=== PATIENT | female | born 1945 | race Caucasian/White ===

== ENCOUNTER 2016-11-05 16:38 | Observation (INO) | payer MEDICARE ==
[~2016-11-05] VITALS: Ht 172.7 cm; Wt 65.8 kg
[2016-11-05] MEDS ORDERED: PLEASE ENTER HEIGHT AND WEIGHT MC SCH (18:00)
[2016-11-05] MEDS ORDERED: SODIUM CHLORIDE FLUSH 10ML SYR IVF ONE (18:00)
[2016-11-05] MEDS ORDERED: ACETAMINOPHEN 325 MG TABLET PO ONE (18:00)
[2016-11-05] MEDS ORDERED: SODIUM CHLORIDE 0.9% 1,000ML IVBOLUS ONE (18:00)
[2016-11-05] MEDS ORDERED: ACETAMINOPHEN 325 MG TABLET ONE (18:04)
[2016-11-05 18:09] LABS: ASPARTATE AMINO TRANSFERASE 26 U/L (15-37); BLOOD UREA NITROGEN 15 mg/dL (7-18)
[2016-11-05 18:15] LABS: IS PT STATUS REG ER OR PRE ER? YES
[2016-11-05] MEDS ORDERED: VENL50TA2 PO (18:49)
[2016-11-05] MEDS ORDERED: ESTR0.5T PO (18:49)
[2016-11-05] MEDS ORDERED: CLON-365 PO (18:49)
[2016-11-05] MEDS: PLEASE ENTER ALLERGIES MC SCH ×4 (18:50→20:39)
[2016-11-05] MEDS ORDERED: POTASSIUM CHLORIDE 10 MEQ in SODIUM CHLORIDE 0.9% 1,000 ML IV SCH (19:22)
[2016-11-05] MEDS ORDERED: ACETAMINOPHEN 325 MG TABLET PO PRN (19:30)
[2016-11-05] MEDS ORDERED: POLYETHYLENE GLYCOL 17 GM PACKET PO PRN (19:30)
[2016-11-05] MEDS: ENOXAPARIN 40 MG/0.4 ML SQ SCH ×2 (19:30→21:46)
[2016-11-05] MEDS ORDERED: DOCUSATE 100 MG CAPSULE PO PRN (19:30)
[2016-11-05] MEDS ORDERED: BISACODYL 10 MG SUPP PR PRN (19:30)
[2016-11-05] MEDS ORDERED: ONDANSETRON 2MG/ML, 2ML IVPush PRN (19:30)
[2016-11-05] MEDS ORDERED: ENOXAPARIN 40 MG/0.4 ML ONE (19:56)
[2016-11-05 21:25] VITALS: BP 130/76
[2016-11-05] MEDS: SODIUM CHLORIDE 0.9% 1,000 ML IV SCH (23:24)
[2016-11-06] VITALS (7 sets, daily range): BP systolic 85–116; BP diastolic 50–78
[2016-11-06] MEDS ORDERED: OMNIPAQUE 350 MG/ML, 100ML BOTTLE ONE (01:16)
[2016-11-06] MEDS: SODIUM CHLORIDE 0.9% 1,000 ML IV SCH (08:35)
[2016-11-06] MEDS ORDERED: ESTRADIOL 0.5 MG TABLET PO SCH (09:00)
[2016-11-06] MEDS ORDERED: VENLAFAXINE 50MG TABLET PO SCH (09:00)
[2016-11-06] MEDS ORDERED: SODIUM CHLORIDE 0.9%, 500ML IVBOLUS ONE (10:30)
[2016-11-06] MEDS ORDERED: SODIUM CHLORIDE 0.9% 1,000 ML IV SCH (19:22)
== END 2016-11-06 16:52 | disposition home or self-care (01) ==
LOC: ED 18:58 → SUATTDRO 19:21 → DCLOUNGE 19:22 → EDIP 19:33 → UNDOADMIN 19:33 → 5SO 21:06 → EDIP 21:06 → DCLOUNGE 11-06 16:32 → 5SO 11-06 16:32 → UNDODISIN 11-06 16:52
DX: R55 Syncope and collapse (principal); S51.012A Laceration without foreign body of left elbow, initial encounter; F45.8 Other somatoform disorders; R63.4 Abnormal weight loss; I95.1 Orthostatic hypotension; F43.21 Adjustment disorder with depressed mood; R79.89 Other specified abnormal findings of blood chemistry; W18.30XA Fall on same level, unspecified, initial encounter; Y93.89 Activity, other specified; Y92.89 Other specified places as the place of occurrence of the external cause; Y99.8 Other external cause status; Z78.0 Asymptomatic menopausal state
CPT/HCPCS: 36415; 70450; 71010; 71275; 72125; 80053; 81003; 83880; 84443; 84484; 85025; 85379; 85610; 85730; 93005; 93306; 93880; 96360; 96361; 96372; 97162; 97165; 99285; G0378; J1650; J7030; J7040; Q9967

== ENCOUNTER 2016-11-07 18:10 | Emergency (ER) | payer MEDICARE ==
[~2016-11-07] VITALS: Ht 175.3 cm; Wt 61.6 kg
[~2016-11-07 18:10] MED LIST: CLON-365 PO; ESTR0.5T PO; VENL50TA2 PO
[2016-11-07] MEDS ORDERED: SODIUM CHLORIDE 0.9% 1,000 ML IV ONE (18:37)
[2016-11-07] MEDS ORDERED: ONDANSETRON 2MG/ML, 2ML ONE (18:41)
[2016-11-07] MEDS ORDERED: LORazepam 2 MG/ML, 1ML ONE (18:42)
[2016-11-07] MEDS ORDERED: SODIUM CHLORIDE FLUSH 10ML SYR IVF ONE (19:00)
[2016-11-07] MEDS ORDERED: LORazepam 2 MG/ML, 1ML IVPush ONE (19:00)
[2016-11-07] MEDS ORDERED: ONDANSETRON 2MG/ML, 2ML IVPush ONE (19:00)
[2016-11-07 19:07] LABS: BLOOD UREA NITROGEN 7 mg/dL (7-18)
[2016-11-07] MEDS ORDERED: OMNIPAQUE 350 MG/ML, 100ML BOTTLE ONE (20:00)
[2016-11-07 21:41] LABS: GLUCOSE, CSF 62 mg/dL (40-80)
[2016-11-07 21:48] VITALS: BP 139/75
[2016-11-07] MEDS ORDERED: MORPHINE SULFATE 4 MG/ML, 1ML ONE (23:17)
[2016-11-07] MEDS ORDERED: MORPHINE SULFATE 4 MG/ML, 1ML IVPush ONE (23:30)
== END 2016-11-07 23:58 | disposition home or self-care (01) ==
LOC: ED 18:35
DX: R51 Headache (principal)
CPT/HCPCS: 36415; 62270; 70450; 70496; 80048; 82040; 82945; 83735; 84157; 85025; 87070; 87205; 89051; 93005; 96361; 96374; 96375; 99285; J2060; J2405; J7030; Q9967